=== PATIENT | male | born 1955 | race Caucasian/White ===

== ENCOUNTER → 2017-07-05 | Outpatient (CLI) | payer MEDICAID ==
[~2017-07-05] MED LIST: GADOBUTROL 7.5 MMOL/7.5 ML VIAL ONE
== END | disposition home or self-care (01) ==
LOC: CFH 09:37
PROVIDERS: ATTEND Radiology Radiation Oncology
DX: Q28.2 Arteriovenous malformation of cerebral vessels (principal)
CPT/HCPCS: 70553; 82565; A9585

== ENCOUNTER → 2017-12-30 | Outpatient (CLI) | payer MEDICAID, MEDICARE ==
[~2017-12-30] MED LIST changes: -GADOBUTROL 7.5 MMOL/7.5 ML VIAL ONE; +OMNIPAQUE 350 MG/ML, 100ML BOTTLE ONE
== END | disposition home or self-care (01) ==
LOC: CFH 08:52
PROVIDERS: ATTEND Radiology Radiation Oncology
DX: Q28.2 Arteriovenous malformation of cerebral vessels (principal)
CPT/HCPCS: 70496; 82565; Q9967

== ENCOUNTER → 2018-01-05 | Outpatient (CLI) | payer MEDICARE | END | disposition home or self-care (01) | LOC: ROC 08:31 | PROVIDERS: ATTEND Radiology Radiation Oncology | DX: Q28.2 Arteriovenous malformation of cerebral vessels (principal) | CPT/HCPCS: G0463 ==

== ENCOUNTER → 2018-12-19 | Outpatient (CLI) | payer MEDICARE ==
[2018-12-19 15:51] LABS: CREATININE 0.94 mg/dL (0.7-1.3)
== END | disposition home or self-care (01) ==
LOC: CFH 11:51
PROVIDERS: ATTEND Radiology Radiation Oncology
DX: T50.8X4A Poisoning by diagnostic agents, undetermined, initial encounter (principal); T65.91XA Toxic effect of unspecified substance, accidental (unintentional), initial encounter; Y92.89 Other specified places as the place of occurrence of the external cause
CPT/HCPCS: 36415; 82565; 84520

== ENCOUNTER 2019-01-04 10:21 | Outpatient (CLI) | payer MEDICARE, MEDICAID ==
[2019-01-04] MEDS ORDERED: OMNIPAQUE 350 MG/ML, 100ML BOTTLE ONE (15:17)
== END 2019-01-04 23:59 | disposition home or self-care (01) ==
LOC: CFH 10:21
PROVIDERS: ATTEND Radiology Radiation Oncology
DX: Q28.2 Arteriovenous malformation of cerebral vessels (principal)
CPT/HCPCS: 70496; Q9967

== ENCOUNTER 2019-01-17 08:49 | Outpatient (CLI) | payer MEDICARE, MEDICAID | END 2019-01-17 23:59 | disposition home or self-care (01) | LOC: ROC 08:49 | PROVIDERS: ATTEND Radiology Radiation Oncology | DX: Q28.2 Arteriovenous malformation of cerebral vessels (principal) | CPT/HCPCS: G0463 ==

== ENCOUNTER 2019-01-24 10:18 | Outpatient (CLI) | payer MEDICAID, MEDICARE | END 2019-01-24 23:59 | disposition home or self-care (01) | LOC: CFH 10:18 | PROVIDERS: ATTEND Radiology Radiation Oncology | DX: M50.30 Other cervical disc degeneration, unspecified cervical region (principal); M47.812 Spondylosis without myelopathy or radiculopathy, cervical region; M50.21 Other cervical disc displacement, high cervical region; Q28.2 Arteriovenous malformation of cerebral vessels | CPT/HCPCS: 70553; 72156; A9585 ==

== ENCOUNTER 2019-01-31 08:20 | Outpatient (CLI) | payer MEDICARE, MEDICAID | END 2019-01-31 23:59 | disposition home or self-care (01) | LOC: ROC 08:20 | PROVIDERS: ATTEND Radiology Radiation Oncology | DX: Z09 Encounter for follow-up examination after completed treatment for conditions other than malignant neoplasm (principal); I60.8 Other nontraumatic subarachnoid hemorrhage; R47.1 Dysarthria and anarthria; Z91.81 History of falling | CPT/HCPCS: G0463 ==

== ENCOUNTER → 2020-01-10 | Outpatient (CLI) | payer MEDICARE ==
[~2020-01-10] MED LIST changes: +GADOTERATE 7.5 MMOL/15 ML SYR ONE; -OMNIPAQUE 350 MG/ML, 100ML BOTTLE ONE
== END | disposition home or self-care (01) ==
LOC: CFH 08:51
PROVIDERS: ATTEND Radiology Radiation Oncology
DX: Q27.39 Arteriovenous malformation, other site (principal)
CPT/HCPCS: 70546; 70553; A9575

== ENCOUNTER → 2020-02-13 | Outpatient (CLI) | payer MEDICARE | END | disposition home or self-care (01) | LOC: ROC 08:07 | PROVIDERS: ATTEND Radiology Radiation Oncology | DX: Q28.2 Arteriovenous malformation of cerebral vessels (principal) | CPT/HCPCS: G0463 ==